=== PATIENT | male | born 1960 | race African-American/Black ===

== ENCOUNTER 2017-08-14 18:52 | Inpatient (IN) | payer MEDICAID ==
[2017-08-14] MEDS ORDERED: Morphine Sulfate 4 mg/mL 1mL Syr IVP STA (19:20)
--- NOTE | 2017-08-14 19:24 | ED Physician Chart ---
ED Chief Complaint/HPI - Patient Information Date Seen:: 08/14/17 Time Seen:: 19:10 Chief Complaint:: chest pain History of Present Illness:: 2 hours ago patient developed sharp left superior chest pain radiating to the back. Pain is nonpleuritic and is 9 on a scale of 1-10 in severity Patient's had no recent cough. Historian:: Patient Review:: Nurse's Note Reviewed ED Review of Systems - Review of Systems General/Constitutional: No fever, No chills Skin: No skin lesions Head: No headache Eyes: No loss of vision ENT: No earache Neck: No neck pain Cardio Vascular: Chest pain Pulmonary: No SOB GI: No vomiting G/U: No dysuria Musculoskeletal: No bone or joint pain Endocrine: No polyuria, No polydipsia Psychiatric: No prior psych history, No depression, No anxiety Hematopoietic: No bruising Allergic/Immuno: No urticaria Neurological: No syncope ED Labs/Radiology/EKG Results - Lab Results Results: Laboratory Results - last 24 hr 08/14/17 08/14/17 08/14/17 19:45 19:45 19:45 WBC 4.9 RBC 4.87 Hgb 13.8 Hct 42.3 MCV 86.8 MCH 28.3 MCHC Differential 32.6 RDW 18.6 Plt Count 540 H MPV 6.6 Neutrophils % 61.8 Lymphocytes % 22.1 Monocytes % 8.4 Eosinophils % 7.4 H Basophils % 0.3 Sodium 134 L Potassium 4.3 Chloride 98 Carbon Dioxide 24.1 Anion Gap 16.2 H BUN 36 H Creatinine 2.0 H Est GFR ( Amer) 44.4 Est GFR (Non-Af Amer) 36.7 BUN/Creatinine Ratio 18.0 Glucose 111 H Calcium 9.9 Troponin I 0.02 B-Natriuretic Peptide 08/14/17 19:45 WBC RBC Hgb Hct MCV MCH MCHC Differential RDW Plt Count MPV Neutrophils % Lymphocytes % Monocytes % Eosinophils % Basophils % Sodium Potassium Chloride Carbon Dioxide Anion Gap BUN Creatinine Est GFR ( Amer) Est GFR (Non-Af Amer) BUN/Creatinine Ratio Glucose Calcium Troponin I B-Natriuretic Peptide 107.0 H - Radiology Results Results: Laboratory Results - last 24 hr 08/14/17 08/14/17 08/14/17 19:45 19:45 19:45 WBC 4.9 RBC 4.87 Hgb 13.8 Hct 42.3 MCV 86.8 MCH 28.3 MCHC Differential 32.6 RDW 18.6 Plt Count 540 H MPV 6.6 Neutrophils % 61.8 Lymphocytes % 22.1 Monocytes % 8.4 Eosinophils % 7.4 H Basophils % 0.3 Sodium 134 L Potassium 4.3 Chloride 98 Carbon Dioxide 24.1 Anion Gap 16.2 H BUN 36 H Creatinine 2.0 H Est GFR ( Amer) 44.4 Est GFR (Non-Af Amer) 36.7 BUN/Creatinine Ratio 18.0 Glucose 111 H Calcium 9.9 Troponin I 0.02 B-Natriuretic Peptide 08/14/17 19:45 WBC RBC Hgb Hct MCV MCH MCHC Differential RDW Plt Count MPV Neutrophils % Lymphocytes % Monocytes % Eosinophils % Basophils % Sodium Potassium Chloride Carbon Dioxide Anion Gap BUN Creatinine Est GFR ( Amer) Est GFR (Non-Af Amer) BUN/Creatinine Ratio Glucose Calcium Troponin I B-Natriuretic Peptide 107.0 H - EKG Interpretations Rate & Rhythm: normal sinus rhythm with a rate of 76 [place]: normal Comments:: Inverted T waves in lead 1 and aVL ED Assessment - Assessment General Assessment: Patient's pain decreased to a 6 out of 10 at at about 2100. Except for a mildly abnormal EKG with inverted T waves in lead 1 and aVL patient had a negative cardiac workup. Because of patient has had coronary artery stents he will be admitted to telemetry. Spoke to Dr. Pelayo. ED Septic Shock - . Is Septic Shock (SBP<90, OR Lactate>4 mmol\L) present?: No ED Reassessment (Disposition) - Reassessment Reassessment Condition:: Improved - Diagnosis Diagnosis:: Chest pain; coronary artery disease - Patient Disposition Admitted to:: Telemetry Spoke to:: Rodolfo Pelayo Admitting Medical Physician:: Rodolfo Pelayo Condition at Disposition:: Stable, Improved
[2017-08-14] MEDS ORDERED: Morphine Sulfate 4 mg/mL 1mL Syr ONE (19:58)
[2017-08-14 20:11] LABS: % BASOPHILS 0.3 % (0.0-2.0); % EOSINOPHILS 7.4 % (0.0-5.0); % LYMPHOCYTES 22.1 % (20.0-50.0); % MONOCYTES 8.4 % (2.0-10.0); % NEUTROPHILS 61.8 % (40.0-80.0); EOSINOPHILE ABSOLUTE 0.4 Th/cmm (0.1-0.4); HEMATOCRIT 42.3 % (41.0-60); HEMOGLOBIN 13.8 gm/dL (12-16); LYMPHOCYTE ABSOLUTE 1.1 Th/cmm (1.5-3.0); MEAN CELL VOLUME 86.8 fl (80-99); MEAN CORPUSCULAR HEMOGLOBIN 28.3 pg (26.0-30.0); MEAN CORPUSCULAR HGB CONC 32.6 pg (28.0-36.0); MEAN PLATELET VOLUME 6.6 fl; MONOCYTE ABSOLUTE 0.4 Th/cmm (0.3-1.0); PLATELET COUNT 540 Th/cmm (150-400); RED BLOOD COUNT 4.87 Mil/cmm (4.30-5.70); RED CELL DISTRIBUTION WIDTH 18.6 % (11.5-20.0); WHITE BLOOD COUNT 4.9 Th/cmm (4.8-10.8)
[2017-08-14 20:18] LABS: ANION GAP 16.2 (7.0-16.0); CALCIUM SERUM 9.9 mg/dL (8.6-10.3); CARBON DIOXIDE 24.1 mEq/L (21.0-31.0); GFR AFRICAN-AMERICAN 44.4 ml/min (>90); GFR NON AFRICAN-AMERICAN 36.7 ml/min; POTASSIUM SERUM 4.3 mEq/L (3.5-5.1)
[2017-08-15 01:48] VITALS: BP 160/105
[2017-08-15] MEDS ORDERED: Pneumococcal Vaccine 0.5 mL Vial IM ONE (01:55)
[2017-08-15 04:56] LABS: CHOLESTEROL 203 mg/dL (<200); HDL -HIGH DENSITY LIPOPROTEIN 56 mg/dL (23-92); TRIGLYCERIDES 202 mg/dL (<150)
--- NOTE | 2017-08-15 08:39 | Diagnostic Imaging Report ---
Portable chest x-ray Time: 1945 hours History: Chest pain Allowing for portable technique the heart size is normal. No focal pulmonary parenchymal processes. No hilar or mediastinal abnormalities. Impression: No acute abnormalities.
[2017-08-15] MEDS: Aspirin 81mg Chewable Tab PO SCH (08:50)
[2017-08-15] MEDS: Pantoprazole 40 mg EC Tab PO SCH (08:51)
[2017-08-15] MEDS: Hydrocodone/APAP 5mg/325mg Tab PO PRN ×2 (12:48→20:12)
[2017-08-15 13:41] LABS: A1C % 5.9 % (4.0-6.0)
[2017-08-15 14:09] LABS: AMPHETAMINE URINE NEGATIVE (NEGATIVE); BARBITURATES URINE NEGATIVE (NEGATIVE)
[2017-08-15 14:10] LABS: BENZODIAZEPINES QUAL URINE POSITIVE (NEGATIVE); CANNABINOID THC POSITIVE (NEGATIVE); COCAINE METABOLITE QUAL URINE NEGATIVE (NEGATIVE); METHADONE URINE NEGATIVE (NEGATIVE); METHAMPHETAMINES QUAL URINE NEGATIVE (NEGATIVE); OPIATES (MORPHINE) QUAL. URINE POSITIVE (NEGATIVE); PHENCYCLIDINE (PCP) URINE NEGATIVE (NEGATIVE); TRICYCLICS (TCA) QUAL. URINE POSITIVE (NEGATIVE)
[2017-08-15] MEDS ORDERED: Morphine Sulfate 2 mg/mL 1mL Syr IM ONE (15:01)
--- NOTE | 2017-08-15 17:01 | Cardiology ---
08/14/2017 ECHOCARDIOGRAM PATIENT OF: Rodolfo Pelayo M.D. M-MODE ECHOCARDIOGRAM: Mitral valve, anterior leaflet of mitral valve shows normal excursion, EF velocity. Posterior leaflet of the mitral valve shows normal excursion. Left ventricular posterior showed normal thickness excursion. Interventricular septum shows increased thickness, normal excursion, hypertrophy of the left ventricle, ejection fraction 55%. Left atrium normal. Aortic root shows normal dimension, normal excursion of aortic leaflets. CONCLUSION: Hypertrophy of the left ventricle, ejection fraction 55%. 2D ECHO: Long axis view show normal size left ventricle with hypertrophy of the left ventricle. Left atrium normal. Aortic root shows normal dimension, normal excursion of aortic leaflets. Short axis view of mitral valve normal. Short axis view of aortic valve normal. Apical four chamber view showed normal sized left ventricle, left atrium, right ventricle, right atrium, tricuspid valve, and mitral valve. CONCLUSION: Hypertrophy of the left ventricle, ejection fraction 55%. Doppler study showed trace mitral regurgitation, trace tricuspid regurgitation, ejection fraction 55%. JOB# [id number]
[2017-08-15 20:30] LABS: ANION GAP 21.7 (7.0-16.0); CARBON DIOXIDE 16.1 mEq/L (21.0-31.0); POTASSIUM SERUM 4.8 mEq/L (3.5-5.1)
[2017-08-15 20:51] LABS: CREATININE - SERUM 2.5 mg/dL (0.7-1.3); GFR AFRICAN-AMERICAN 34.3 ml/min (>90); GFR NON AFRICAN-AMERICAN 28.3 ml/min
[2017-08-15 20:53] LABS: CALCIUM SERUM 9.5 mg/dL (8.6-10.3)
--- NOTE | 2017-08-15 22:10 | Consultation ---
DATE OF CONSULTATION: 08/15/2017 REASON FOR CONSULTATION: Psych eval. HISTORY OF PRESENT ILLNESS: A 56-year-old male, currently in the telemetry unit, sharp superior chest pain radiating to the back. The patient states that he has a history of bipolar, states he has "racing thoughts." Denying depression and no overt sadness. Poor sleep at this time. The patient hopeful that things will improve. He is eating fairly well. MEDICATIONS: Reviewed. He states he takes Seroquel and Ativan as needed. PAST MEDICAL HISTORY: Please see full H and P. SOCIAL HISTORY: Living alone in [facility]. Not , no kids, no drugs, no alcohol, no tobacco. MENTAL STATUS EXAMINATION: Stated age. Fair eye contact. Speech within normal limits. Mood "okay." Affect constricted. Thought processes were linear. No SI, no HI, no intent, no plan. No psychotic symptoms. Insight and judgment reasonable. PROVISIONAL DIAGNOSIS: Bipolar, unspecified. Under medical, please see full H and P. RECOMMENDATIONS AND PLAN: No 5150 criteria. The patient is mainly complaining of insomnia. I will be increasing the Seroquel to 100 mg p.o. b.i.d. and 200 mg at nighttime. [facility]# [id number]
--- NOTE | 2017-08-15 22:17 | Consultation ---
DATE OF CONSULTATION: 08/15/2017 HISTORY AND PHYSICAL: This 56-year-old -[place] male patient who had been complaining of chest pain, sharp in nature. Following this, the patient came to the Emergency Room. No history of PND, orthopnea. PAST MEDICAL HISTORY: CKD stage 2, hypertension and GERD. FAMILY HISTORY: Unremarkable. SOCIAL HISTORY: No history of smoking, alcohol abuse. ALLERGIES: None. PHYSICAL EXAMINATION: VITAL SIGNS: Blood pressure 130/80, pulse 70, respirations 20. HEENT: Head: Normocephalic. No lumps or bumps. Eyes: Pupils equal, reactive to light. Fundi show AV nicking. Sclerae white. Conjunctivae pink. NECK: Carotid 2+. Normal upstroke. JVD flat. Thyroid not palpable. Lymph nodes not palpable. CHEST: Shows increased AP diameter. No kyphosis, scoliosis. LUNGS: Bilateral bronchovesicular breath sounds. HEART: PMI fifth intercostal space with lateral to midclavicular line. S1, S2. No S3, S4. Soft systolic murmur. ABDOMEN: Soft. Liver, spleen not palpable. No organomegaly. Bowel sounds active. NEUROLOGIC: Unremarkable. EXTREMITIES: Peripheral pulses 2+. No pedal edema. CLINICAL IMPRESSION: Atypical chest pain, troponin level normal, CKD stage 2, hypertension and GERD. PLAN: The patient had echocardiogram which is unremarkable. Troponin level normal. The patient can be discharged. JOB# [id number]
--- NOTE | 2017-08-16 02:24 | History & Physical ---
ADMIT DATE: 08/15/2017 CHIEF COMPLAINT: Chest pain. HISTORY OF PRESENT ILLNESS: A 56-year-old male with hypertension, hyperlipidemia, coronary artery disease, and mental disorders, who was admitted for evaluation of the chest pain. The patient says symptoms started 2 hours prior to arrival in the Emergency Room. Overnight, the patient remained asymptomatic. This morning, the patient complaining of generalized body pain. Denies any fever, no chills, no cough, no diaphoresis, and no shortness of breath or palpitations. PAST MEDICAL HISTORY: As per HPI. SURGICAL HISTORY: None reported. FAMILY HISTORY-PARRY: For heart disease. SOCIAL HISTORY: Lives at home. Denies any alcohol, tobacco, or street drug use. CURRENT MEDICATIONS: Aspirin, Lotensin, Ativan, Zofran, Protonix, Seroquel, and Ambien. REVIEW OF SYSTEMS: As per HPI, 12-point system was negative. PHYSICAL EXAMINATION: VITAL SIGNS: Temperature 97.1, pulse 86, respirations 20, blood pressure 124/90, and oxygen 100% on room air. HEART: S1 and S2 normal. LUNGS: Clear to auscultation bilaterally. ABDOMEN: Soft and nontender. No guarding, no rigidity. NEUROLOGIC: Alert, awake, follows commands, moves all extremities. No focal deficits. EXTREMITIES: No edema noted. No calf tenderness. AVAILABLE LABORATORY DATA: WBC 4.9, hemoglobin is 13.8, hematocrit 42.3, platelet count is 540, BUN 36, creatinine 2.0. Troponin 0.02. ASSESSMENT: 1. Chest pain, rule out acute coronary syndrome. 2. Hypertension with renal disease. 3. Mental disorders. PLAN: The patient admitted to tele unit. Serial troponins ordered. Cardiology consult and echocardiogram ordered. The patient's home medications are reconciled. Blood pressure has been monitored. Renal ultrasound ordered. Case discussed with Cardiology. We will follow up on the Cardiology recommendations. The patient will be given morphine intramuscular for pain control. JOB# [id number] [email or web address]
[2017-08-16] MEDS: Pantoprazole 40 mg EC Tab PO SCH (07:44)
[2017-08-16] MEDS: Hydrocodone/APAP 5mg/325mg Tab PO PRN ×2 (08:45→17:37)
[2017-08-16] MEDS: Aspirin 81mg Chewable Tab PO SCH (08:47)
[2017-08-16] MEDS ORDERED: Pantoprazole 40 mg EC Tab PO ONE (11:45)
--- NOTE | 2017-08-16 14:08 | History & Physical ---
ADMIT DATE: 08/16/2017 ATTENDING PHYSICIAN: Dr. Rodolfo Pelayo. REASON FOR CONSULTATION: Elevated BUN and creatinine. HISTORY OF PRESENT ILLNESS: The patient is a 56-year-old male with hypertension and coronary artery disease, who came into the Emergency Room complaining of chest pain. He was admitted and found to have rising BUN and creatinine, so I am called in consultation. PAST MEDICAL HISTORY: Significant for hypertension, coronary artery disease status post PTCA and stenting 4 times in the past. He also has psychosis. Appears to have narcotic dependence. FAMILY HISTORY: Significant for heart disease, no diabetes or hypertension. SOCIAL HISTORY: The patient denies drinking, smoking, or using any street drugs. ALLERGIES: No known drug allergies. MEDICATIONS: He was on aspirin, Lotensin, Ativan, Zofran, Protonix, Seroquel, and Ambien. REVIEW OF SYSTEMS: As in history of present illness. All other systems reviewed and found to be negative. PHYSICAL EXAMINATION: VITAL SIGNS: Blood pressure is 124/90, temperature 97.1, pulse 86, respirations 20. HEENT: Normocephalic, atraumatic. Pupils equal, round, reacting to light and accommodation. Extraocular movements are intact. CARDIOVASCULAR: S1, S2 heard, regular rate and rhythm. LUNGS: Clear to auscultation bilaterally. ABDOMEN: Soft. No hepatosplenomegaly. EXTREMITIES: There is no cyanosis, clubbing or edema. NEUROLOGIC: Cranial nerves 2-12 are intact. No focal deficit. LABORATORY DATA: Sodium 135, potassium 4.8, chloride 102, bicarbonate 16.1, BUN 50, creatinine 2.5, glucose 110, calcium 9.5. Urinalysis is positive for opiates, barbiturates, benzodiazepines and cannabinoids. WBC 4.9, hemoglobin 13.8, hematocrit 42.3 and platelet count 540,000. ASSESSMENT AND PLAN: 1. Acute renal failure on top of chronic renal failure. This is probably prerenal azotemia due to his decreased cardiac output. Would check BNP and reduce his Lasix. 2. Hypertension, controlled at this time. 3. Coronary artery disease status post PTCA and stenting with chest pain now. MA ruled out with serial troponins. 4. Psychosis. Continue Seroquel. Further treatment per Dr. Campos. Thank you very much for the privilege of consulting on your patient Dr. Pelayo. JOB# [id number]
--- NOTE | 2017-08-16 21:39 | Consultation ---
DATE OF CONSULTATION: 08/16/2017 HISTORY OF PRESENT ILLNESS: A 56-year-old male, currently in the Telemetry unit, history of bipolar, mood clinically better, racing thoughts. Clinical labs, states she slept better last night. No complaints this morning, hopeful and motivated. MEDICATIONS: Noted. MENTAL STATUS EXAMINATION: Stated age. Fair eye contact. Mood "okay." Affect constricted. Thought processes more linear. No SI. No HI. No psychotic symptoms. PROVISIONAL DIAGNOSIS: Bipolar, unspecified. RECOMMENDATIONS AND PLAN: The patient is doing fairly, better sleep, less racing thoughts, happy with medication adjustments. JOB# [id number]
[2017-08-16 21:54] LABS: SURFACE AREA 1.73
[2017-08-17] MEDS: Hydrocodone/APAP 5mg/325mg Tab PO PRN (01:34)
[2017-08-17 06:17] LABS: ANION GAP 11.9 (7.0-16.0); CALCIUM SERUM 9.3 mg/dL (8.6-10.3); CARBON DIOXIDE 25.5 mEq/L (21.0-31.0); CREATININE - SERUM 1.7 mg/dL (0.7-1.3); GFR AFRICAN-AMERICAN 53.5 ml/min (>90); GFR NON AFRICAN-AMERICAN 44.2 ml/min; POTASSIUM SERUM 4.4 mEq/L (3.5-5.1)
[2017-08-17 06:19] LABS: % BASOPHILS 0.6 % (0.0-2.0); % EOSINOPHILS 15.1 % (0.0-5.0); % LYMPHOCYTES 35.4 % (20.0-50.0); % MONOCYTES 9.5 % (2.0-10.0); % NEUTROPHILS 39.4 % (40.0-80.0); EOSINOPHILE ABSOLUTE 0.6 Th/cmm (0.1-0.4); HEMOGLOBIN 11.8 gm/dL (12-16); LYMPHOCYTE ABSOLUTE 1.5 Th/cmm (1.5-3.0); MEAN CELL VOLUME 87.4 fl (80-99); MEAN CORPUSCULAR HEMOGLOBIN 29.6 pg (26.0-30.0); MEAN CORPUSCULAR HGB CONC 33.9 pg (28.0-36.0); MEAN PLATELET VOLUME 6.8 fl; MONOCYTE ABSOLUTE 0.4 Th/cmm (0.3-1.0); NEUTROPHILE ABSOLUTE 1.6 Th/cmm (1.8-8.0); RED BLOOD COUNT 3.97 Mil/cmm (4.30-5.70); RED CELL DISTRIBUTION WIDTH 18.1 % (11.5-20.0); WHITE BLOOD COUNT 4.1 Th/cmm (4.8-10.8)
[2017-08-17 06:29] LABS: HEMATOCRIT 34.7 % (41.0-60); PLATELET COUNT 360 Th/cmm (150-400)
[2017-08-17] MEDS: Pantoprazole 40 mg EC Tab PO SCH (06:47)
[2017-08-17] MEDS: Aspirin 81mg Chewable Tab PO SCH (08:50)
--- NOTE | 2017-08-17 09:20 | Diagnostic Imaging Report ---
Renal ultrasound HISTORY: Hypertension The right kidney is normal in size (9.6 x 4.8 x 5.2 cm). No focal lesions. No hydronephrosis. The left kidney is normal in size (9.6 x 5.6 x 4.7 cm). No focal lesions. No hydronephrosis. No intraluminal abnormality seen within the urinary bladder. IMPRESSION: Negative examination
[2017-08-17] MEDS: Morphine Sulfate 2 mg/mL 1mL Syr IV PRN ×2 (12:56→17:25)
--- NOTE | 2017-08-17 22:52 | Progress Notes ---
DATE: 08/17/2017 SUBJECTIVE: The patient seen on 08/17/2017, noting that he is feeling "better," slept very well last night. No racing thoughts. Mood, "better," happy with treatment, wants to continue his Seroquel. MENTAL STATUS EXAMINATION: Linear, engaged, no SI, no HI. No psychotic symptoms, there are insight. PROVISIONAL DIAGNOSIS: Bipolar, unspecified. RECOMMENDATIONS AND PLAN: Continue Seroquel. The patient is happy with treatments. [facility]# [id number]
--- NOTE | 2017-08-18 15:58 | Discharge Summary ---
DATE OF DISCHARGE: 08/17/2017 FINAL DIAGNOSES: 1. Chest pain. Myocardial infarction ruled out. 2. Acute renal failure on chronic renal insufficiency, improving. 3. Hypertension with chronic kidney disease, stage III. 4. Chronic psychosis, worsened due to off of Seroquel 400 mg once a day. HOSPITAL COURSE/IMPORTANT LABS: A 56-year-old gentleman with very vague historian, now presented with chest pain, admitted to telemetry unit, and cardiology consultation is obtained. Serial troponin is negative; and subsequently, the patient is able to eat, he started feeling better, and he also started back on his Seroquel total 400 mg once a day, and his main complaint was pain, and they want to get the pain medications. The patient had a renal consult due to creatinine elevated at 2.5, subsequent creatinine is 1.7. On discharge on 08/17/2017, ultrasound kidney negative, and the patient was on [place] 5/325 q.8 h. p.r.n., Ecotrin 81 mg once a day, Ativan 1 mg q.6 hours p.r.n., Protonix 40 once a day, and Seroquel 400 mg total per day, opiate, tricyclic, and cannabinoid, and benzodiazepine was found in the urine tox screen. WBC is 4.1; hemoglobin 11.8; MCV 87; platelet count 60,000; hemoglobin A1c 5.9. Troponin x 2 are negative. Creatinine clearance 53. Sodium 135, potassium 4.4, chloride 102, bicarbonate 35, BUN 37, creatinine 1.7, glucose 88, calcium 9.3. Advised the patient to follow up with primary care physician and take all medications on regular basis. JOB# [id number]
== END 2017-08-17 18:30 | disposition home or self-care (01) | DRG 198 ==
LOC: ER 18:52 → TELE 22:30
PROVIDERS: ADMIT Family Medicine; ATTEND Family Medicine
DX: R07.89 Other chest pain (principal); I25.10 Atherosclerotic heart disease of native coronary artery without angina pectoris; N17.9 Acute kidney failure, unspecified; N18.3 Chronic kidney disease, stage 3 (moderate); I12.9 Hypertensive chronic kidney disease with stage 1 through stage 4 chronic kidney disease, or unspecified chronic kidney disease; E78.5 Hyperlipidemia, unspecified; F31.9 Bipolar disorder, unspecified; F29 Unspecified psychosis not due to a substance or known physiological condition; K21.9 Gastro-esophageal reflux disease without esophagitis; Z79.899 Other long term (current) drug therapy; Z79.82 Long term (current) use of aspirin; Z82.49 Family history of ischemic heart disease and other diseases of the circulatory system; Z95.5 Presence of coronary angioplasty implant and graft
CPT/HCPCS: 36415-UA; 71010-TC; 76770-TC; 80048-TC; 80061-TC; 80307; 81050-TC; 82575-TC; 83036-90; 83880-TC; 84156-TC; 84484-TC; 85025-TC; 93005; 96374; J2270; Q0162; Z7610